=== PATIENT | female | born 1955 | race Caucasian/White ===

== ENCOUNTER 2019-02-18 13:43 | Emergency (ER) | payer OTHER ==
[2019-02-18] MEDS ORDERED: Ketorolac Tromethamine 30 MG/ML VIAL ONE (14:38)
[2019-02-18] MEDS ORDERED: Piperacillin/Tazobactam 4.5 GM VIAL ONE (14:44)
[2019-02-18 14:52] LABS: #Basophils 0.1 thou/uL (0.0-0.2); #Eosinphils 0.1 thou/uL (0.0-0.7); #Lymphocytes 1.6 thou/uL (1.20-3.40); #Monocytes 0.9 thou/uL (0.11-0.59); #Neutrophils 9.5 thou/uL (1.40-6.50); %Basophils 0.6 % (0.0-1.0); %Eosinophils 0.5 % (0.0-10.0); %Monocytes 7.4 % (0.0-10.0); %Neutrophils 78.5 % (42.0-75.0); Hemoglobin 14.2 g/dL (12.0-16.0); Mean Corpuscular HGB CONC 34.2 g/dL (32.0-36.0); Mean Corpuscular Hemoglobin 33.9 pg (27.0-31.0); Mean Corpuscular Volume 99.3 fL (78.0-98.0); Mean Platelet Volume 7.8 fL (7.4-10.4); Platelet Count 173 thou/uL (130-400); RBC Distribution Width 12.2 % (11.5-14.5); Red Blood Cell (RBC) Count 4.18 mill/uL (4.20-5.40); White Blood Cell (WBC) Count 12.1 thou/uL (4.8-10.8)
[2019-02-18 15:12] LABS: ALT (SGPT) 23 U/L (8-55); AST (SGOT) 21 U/L (5-34); Alkaline Phosphatase 129 U/L (40-150); Anion Gap 16 mmol/L (10-20); BUN (Urea Nitrogen) 14 mg/dL (9.8-20.1); Bilirubin, Total 1.3 mg/dL (0.2-1.2); Calc. Creatinine Clearance 0 mL/min (70-130); Calcium 9.6 mg/dL (7.8-10.44); Carbon Dioxide 21 mmol/L (23-31); Chloride 104 mmol/L (98-107); Estimated GFR-MDRD 81; Globulin 3.7 g/dL (2.4-3.5); Glucose 95 mg/dL (80-115); Potassium 3.6 mmol/L (3.5-5.1); Protein, Total 7.7 g/dL (6.0-8.3); Sodium 137 mmol/L (136-145)
[2019-02-18] MEDS ORDERED: Lidocaine 1% w/Epinephrine 1:100K 20 ML VIAL ONE (15:18)
--- NOTE | 2019-02-18 15:20 | RAD ---
FOUR VIEWS LEFT ELBOW: COMPARISON: None. HISTORY: Left arm pain. FINDINGS: Four views left elbow show no evidence of acute fracture or dislocation. No elbow effusion is seen. No degenerative changes are present. Moderate diffuse soft tissue swelling is seen. IMPRESSION: No evidence of acute osseous abnormality. POS: [facility]
[2019-02-18] MEDS ORDERED: Morphine 4 MG/ML VIAL ONE (15:35)
== END 2019-02-18 17:10 | disposition home or self-care (01) ==
LOC: ERS 13:43
DX: L02.414 Cutaneous abscess of left upper limb (principal); L03.114 Cellulitis of left upper limb; F17.210 Nicotine dependence, cigarettes, uncomplicated; F32.9 Major depressive disorder, single episode, unspecified
CPT/HCPCS: 10061; 36415; 80053; 83605; 85025; 87040; 87070; 87077; 87149; 87186; 87205; 96361; 96365; 96375; J1885; J2001; J2270; J2543

== ENCOUNTER 2019-02-20 11:57 | Inpatient (IN) | payer OTHER ==
[2019-02-20 13:14] LABS: #Eosinphils 0.1 thou/uL (0.0-0.7); #Lymphocytes 2.4 thou/uL (1.20-3.40); #Monocytes 0.6 thou/uL (0.11-0.59); #Neutrophils 5.9 thou/uL (1.40-6.50); %Basophils 0.4 % (0.0-1.0); %Eosinophils 1.3 % (0.0-10.0); %Lymphocytes 26.8 % (21.0-51.0); %Monocytes 6.9 % (0.0-10.0); %Neutrophils 64.7 % (42.0-75.0); Hemoglobin 13.6 g/dL (12.0-16.0); Mean Corpuscular HGB CONC 34.1 g/dL (32.0-36.0); Mean Corpuscular Hemoglobin 33.8 pg (27.0-31.0); Mean Platelet Volume 9.4 fL (7.4-10.4); Platelet Count 194 thou/uL (130-400); RBC Distribution Width 12.2 % (11.5-14.5); Red Blood Cell (RBC) Count 4.01 mill/uL (4.20-5.40); White Blood Cell (WBC) Count 9.1 thou/uL (4.8-10.8)
[2019-02-20] MEDS ORDERED: Piperacillin/Tazobactam 3.375 GM VIAL ONE (13:21)
[2019-02-20 13:24] LABS: ALT (SGPT) 31 U/L (8-55); AST (SGOT) 28 U/L (5-34); Albumin 3.5 g/dL (3.4-4.8); Alkaline Phosphatase 129 U/L (40-150); Anion Gap 14 mmol/L (10-20); BUN (Urea Nitrogen) 14 mg/dL (9.8-20.1); Bilirubin, Total 0.4 mg/dL (0.2-1.2); Calc. Creatinine Clearance 0 mL/min (70-130); Calcium 9.3 mg/dL (7.8-10.44); Carbon Dioxide 23 mmol/L (23-31); Chloride 106 mmol/L (98-107); Estimated GFR-MDRD 74; Globulin 3.7 g/dL (2.4-3.5); Glucose 101 mg/dL (80-115); Potassium 4.1 mmol/L (3.5-5.1); Protein, Total 7.2 g/dL (6.0-8.3); Sodium 139 mmol/L (136-145)
[2019-02-20] MEDS ORDERED: Lorazepam 2 MG/ML VIAL ONE (15:52)
[2019-02-20] MEDS ORDERED: Lorazepam 2 MG/ML VIAL SLOW IVP SCH (16:45)
[2019-02-20 17:25] VITALS: BMI 29.6
[2019-02-20] MEDS: Nicotine 21 MG PATCH TOP SCH (17:49)
[2019-02-20] MEDS: traMADol HCl 50 MG TAB PO PRN (19:14)
[2019-02-20] MEDS ORDERED: Vancomycin HCl 1.25 GM in Sodium Chloride 0.9% 250 ML 250 ML IVPB SCH (22:00)
[2019-02-20] MEDS: Acetaminophen 325 MG TAB PO PRN (23:08)
--- NOTE | 2019-02-21 00:16 | HP ---
CHIEF COMPLAINT: Left arm pain. HISTORY OF PRESENT ILLNESS: The patient is a 63-year-old female with no past medical history, except for the history of smoking, who presents to the hospital actually for a packing change. The patient initially came into the ER on the for swelling of her left elbow. The patient at that time underwent an x-ray, which did not indicate any acute osseous abnormalities. She stated that she had a small pimple, which she accidentally scratched and the following day, she had significant swelling and redness of her whole left arm. The patient underwent I and D in the ER. Cultures were sent and patient was sent on 2 antibiotics. The patient stated that she has been taking her antibiotics; however, came in today per instructions to change her packing. At this time, the ER physician felt the patient needed to be admitted to the hospital for further evaluation. However, the patient stated that her redness has dramatically improved than her previous admit on the . PAST MEDICAL HISTORY: Patient states that she does not take any medications. She has no past medical history. However, upon further questioning, she states that she has had cervical cancer in the past and has had a hysterectomy. However, in 2004, she had a Pap smear that indicated squamous cell, which she never followed up. The patient states that she has been doing fine and she does not need to follow up. PAST SURGICAL HISTORY: She has had some elbow surgery as a child. She does have hardware in her left elbow and she has had a hysterectomy. MEDICATIONS: The patient takes no medications. The only medications she took were prescribed, which were Bactrim and Keflex. ALLERGIES: SHE HAS NO KNOWN DRUG ALLERGIES. SOCIAL HISTORY: She is a smoker, 1-1/2 pack a day. Denies any drug use. Occasional alcohol use. REVIEW OF SYSTEMS: All negative except for the ones mentioned above in the HPI. FAMILY HISTORY: She states no history of heart disease or cancer. PHYSICAL EXAMINATION: VITAL SIGNS: Temperature of 98.3, 98% on room air, pulse 98, blood pressure 138/81. GENERAL: She is awake, alert, and oriented x3. Does not appear in any distress. HEENT: Normocephalic, atraumatic. No lymphadenopathy noted. CV: S1 and S2 present. No murmurs, rubs, or gallops. LUNGS: Clear to auscultation. No rhonchi or wheezes noted. ABDOMEN: Soft, nontender. Bowel sounds are present x2. EXTREMITIES: No edema. Pedal pulses are present x2. NEUROVASCULAR: No focal deficits noted. MUSCULOSKELETAL: She does have a significant purulent discharge that continues to ooze out of her left lateral elbow area. I do see a small incision. According to the patient, the redness has subsided significantly. According to the patient, it continues to heal. Elbow is warm to touch. However, she has good range of motion in that elbow. The concerning part is that she does have hardware in that area. PSYCHIATRIC: The patient is very tearful stating that she wants to smoke. LABORATORY RESULTS: WBCs of 9.1, hemoglobin of 13.6. Her WBC prior on the was 12.1, now it is 1.1. Hematocrit of 39.7, platelets of 194. Chemistry: Sodium of 139, potassium 4.1, BUN of 14, creatinine 0.79. Lactic acid is 1.3. ASSESSMENT AND PLAN: The patient is a very pleasant 63-year-old female who presents to the hospital initially for packing change. However, was admitted for further evaluation. 1. Cellulitis. It is of the left lateral forearm. The patient does have significant purulent discharge. I do have cultures that were taken with the incision and drainage, which indicated Staphylococcus aureus. According to the patient, her redness was improving. The antibiotic that she was on was Bactrim and it was sensitive. I will continue the vancomycin for now. She did have a blood culture that indicated Streptococcus viridans. Also one of the blood cultures indicated Streptococcus viridans. We will continue to monitor. Her vancomycin should cover that for now. 2. Smoking cessation. The patient will be ordered a nicotine patch. 3. The patient states that she had a positive squamous cell test in 2004. I recommended her to follow up with health care as an outpatient. I will provide her some names of clinics to provide free care. 4. Deep venous thrombosis prophylaxis. We will put the patient on a sequential compression device or Lovenox. Job ID: [id number]
[2019-02-21 05:04] LABS: #Basophils 0.1 thou/uL (0.0-0.2); #Eosinphils 0.1 thou/uL (0.0-0.7); #Lymphocytes 2.2 thou/uL (1.20-3.40); #Monocytes 0.5 thou/uL (0.11-0.59); #Neutrophils 3.4 thou/uL (1.40-6.50); %Basophils 1.1 % (0.0-1.0); %Eosinophils 1.9 % (0.0-10.0); %Lymphocytes 34.9 % (21.0-51.0); %Monocytes 8.1 % (0.0-10.0); Hemoglobin 11.7 g/dL (12.0-16.0); Mean Corpuscular HGB CONC 33.1 g/dL (32.0-36.0); Mean Corpuscular Hemoglobin 32.4 pg (27.0-31.0); Mean Corpuscular Volume 97.8 fL (78.0-98.0); Platelet Count 206 thou/uL (130-400); RBC Distribution Width 12.1 % (11.5-14.5); Red Blood Cell (RBC) Count 3.62 mill/uL (4.20-5.40); White Blood Cell (WBC) Count 6.3 thou/uL (4.8-10.8)
[2019-02-21 05:31] LABS: Anion Gap 13 mmol/L (10-20); BUN (Urea Nitrogen) 18 mg/dL (9.8-20.1); Calc. Creatinine Clearance 116 mL/min (70-130); Calcium 8.6 mg/dL (7.8-10.44); Carbon Dioxide 21 mmol/L (23-31); Chloride 108 mmol/L (98-107); Estimated GFR-MDRD 84; Glucose 90 mg/dL (80-115); Potassium 3.8 mmol/L (3.5-5.1); Sodium 138 mmol/L (136-145)
[2019-02-21] MEDS: traMADol HCl 50 MG TAB PO PRN ×3 (05:44→22:33)
[2019-02-21] MEDS: Enoxaparin Sodium 30 MG/0.3 ML SYRINGE SC SCH (08:08)
[2019-02-21] MEDS: Acetaminophen 325 MG TAB PO PRN (08:10)
[2019-02-21] MEDS ORDERED: Ibuprofen 200 MG TAB PO SCH (09:00)
[2019-02-21] MEDS ORDERED: cefOXitin Sodium/Dextrose,Iso 1 GM in Premix Bag 1 BAG IVPB SCH (11:00)
[2019-02-21] MEDS ORDERED: CEFAZOLIN 1 GM in Sodium Chloride 0.9% 100 ML IVPB SCH (11:00)
[2019-02-21 11:20] LABS: Bilirubin Small (Negative); Blood, Urine Negative (Negative); Clarity CLEAR (Clear); Glucose, Urine (Dipstick) Negative (Negative); Leukocyte Negative (Negative); Nitrite Negative (Negative); Protein, Urine (Dipstick) Negative (Neg-Trace); Specific Gravity, Urine 1.024 (1.002-1.036)
[2019-02-21 11:26] LABS: Bacteria/HPF None Seen HPF (None Seen); Hyaline Casts/LPF 0-3 HYALINE CAST LPF (0-3 Hyaline); Pathc Cast-AUWi Flag 0.54 (0-2.49); WBC/HPF 0-3 HPF (0-3)
[2019-02-21 11:32] LABS: Urine Culture Reflex No No
[2019-02-21] MEDS ORDERED: Morphine 4 MG/ML VIAL SLOW IVP SCH (11:45)
--- NOTE | 2019-02-21 14:14 | RAD ---
RIGHT HIP 2 VIEWS: HISTORY: Right hip pain following an injury from a fall. FINDINGS: Very mild degenerative change. No acute fracture or dislocation or other significant osseous abnorma lity. IMPRESSION: Degenerative change without other acute process. POS: [facility]
--- NOTE | 2019-02-21 16:09 | PDOC.PN ---
- Subjective Encounter Start Date: 02/21/19 Encounter Start Time: 10:15 Subjective: pt up in bed complains of pain to her left arm - Objective Resuscitation Status - Order Detail: 02/20/19 16:08 Resuscitation Status Routine Resuscitation Status: FULL: Full Resuscitation Vital Signs & Weight: Vital Signs (12 hours) Temp Pulse Resp BP Pulse Ox 02/21/19 12:30 97.4 F L 82 18 137/78 96 02/21/19 08:00 97 02/21/19 07:49 97.5 F L 80 20 137/73 97 02/21/19 04:47 98.4 F 82 18 118/67 92 L Weight Weight 195 lb 1.6 oz Result Diagrams: 02/21/19 03:55 02/21/19 03:55 Phys Exam - Physical Examination Neck: no nodes, no JVD, supple, full ROM Respiratory: no wheezing, no rales, no rhonchi, wheezing present, clear to auscultation bilateral Cardiovascular: RRR, no significant murmur, no rub, gallop, irregular Gastrointestinal: soft, non-tender, no distention, positive bowel sounds pain to her left arm, mild erythema noted Neurological: non-focal, normal sensation, moves all 4 limbs Dx/Plan (1) Cellulitis Code(s): L03.90 - CELLULITIS, UNSPECIFIED Status: Acute (2) Smoking Code(s): F17.200 - NICOTINE DEPENDENCE, UNSPECIFIED, UNCOMPLICATED Status: Acute - Plan will change abx to ancef. -: ID consulted due to strep viridans and mssa -: pt on nicotine patch -: wound care consulted * . Review of Systems - Review of Systems Respiratory: negative: Cough, Dry, Shortness of Breath, Hemoptysis, SOB with Excertion, Pleuritic Pain, Sputum, Wheezing Cardiovascular: negative: chest pain, palpitations, orthopnea, paroxysmal nocturnal dyspnea, edema, light headedness, other Gastrointestinal: negative: Nausea, Vomiting, Abdominal Pain, Diarrhea, Constipation, Melena, Hematochezia, Other Genitourinary: negative: Dysuria, Frequency, Incontinence, Hematuria, Retention , Other Musculoskeletal: Arm Pain - Medications/Allergies Allergies/Adverse Reactions: Allergies Allergy/AdvReac Type Severity Reaction Status Date / Time No Known Allergies Allergy Verified 02/20/19 17:38 Medications: Current Medications Acetaminophen (Tylenol) 650 mg PO Q4H PRN PRN Reason: Headache/Fever/Mild Pain (1-3) Last Admin: 02/21/19 08:10 Dose: 650 mg Enoxaparin Sodium (Lovenox) 30 mg SC 0900 JAMAL Last Admin: 02/21/19 08:08 Dose: 30 mg Cefazolin Sodium/Dextrose (Ancef) 50 mls @ 100 mls/hr IVPB 0300,1100,1900 JAMAL Ibuprofen (Motrin) 600 mg PO Q8H PRN PRN Reason: Mild-Moderate Pain (1-5) Miscellaneous Medication (Pharmacy To Dose) 1 each IVPB .VANCOMYCIN [facility] Nicotine (Nicoderm Patch) 21 mg TOP 1700 JAMAL Last Admin: 02/20/19 17:49 Dose: 21 mg Tramadol HCl (Ultram) 50 mg PO Q6H PRN PRN Reason: Moderate Pain (4-6) Last Admin: 02/21/19 11:45 Dose: 50 mg
[2019-02-21] MEDS: Nicotine 21 MG PATCH TOP SCH (17:17)
[2019-02-21] MEDS: Ibuprofen 600 MG TAB PO PRN (17:22)
[2019-02-22] MEDS: Ibuprofen 600 MG TAB PO PRN (01:07)
--- NOTE | 2019-02-22 01:35 | CON ---
DATE OF CONSULTATION: 02/21/2019 REASON FOR CONSULTATION: Left arm pain with wound. 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 X-ray did not show any bony abnormalities and cultures were taken and she was admitted. No headaches. No visual symptoms, sore throat, odynophagia, or dysphagia. No cough or sputum production. No chest pain. Still smoking. No abdominal pain. No diarrhea. No other joint symptoms. No neurological symptoms. PAST MEDICAL HISTORY: Cervical cancer, hysterectomy, and apparently she had a squamous cell cancer on Pap smear followup which she did not follow up with that. She had also ORIF of the left elbow when she was a child and had a hysterectomy. ALLERGIES: NONE. SOCIAL HISTORY: She used to work as a nurse in the telemetry area. She is currently smoking. FAMILY HISTORY: Noncontributory. CURRENT MEDICATIONS: 1. Cefazolin. 2. Lovenox. 3. Motrin. 4. Nicoderm. 5. Ultram. PHYSICAL EXAMINATION: VITAL SIGNS: T-max 98.4, blood pressure 140/82, pulse 85, respirations 18, O2 saturation 94% to 96%. SKIN: Shows the wound in the volar aspect of the left forearm close to the antecubital fossa, there is erythema surrounding this area, and this wraps around towards the elbow. There is quite a bit of tenderness and fluctuance around the elbow lateral aspect. The patient has peripheral IV access. No Swartz catheter. She is voiding in the toilet. HEENT: No lymphadenopathy. Ocular movements conjugate. Sclerae white. Pupils are equal. Oral cavity, numerous teeth in place with quite a bit of decay and gum disease. NECK: Supple. No jugular venous distention or carotid bruits. LUNGS: Symmetric. Clear breath sounds. HEART: S1 and S2, regular rate. No S3 or S4. ABDOMEN: Soft, not distended or tender. No ascites. No bladder distention. EXTREMITIES: Pulses 1+ in dorsalis pedis. Moves extremities equally except for limitations imposed by inflammatory process of left upper extremity. NEUROLOGIC: Cognitive function appears to be intact. LABORATORY DATA: White cell count is 6.3, hemoglobin 11.7, platelets 206 with normal differential. Chemistry was not remarkable. Globulin 3.7. Microbiology with Staphylococcus aureus from the arm wound and very dense strep from one set of blood cultures. The other, no growth at 48 hours. The patient had a hip x-ray because of pain in the right hip with degenerative change, but no acute process , and she had an elbow x-ray with no acute osseous abnormality. ASSESSMENT: Inflammatory process of the left elbow with a history of prior open reduction and internal fixation many years ago. Bacteremia (Streptococcal), MSSA from abscess. DISCUSSION: In the face of the prior surgery and the affected inflammatory process extends to the posterior aspect of the elbow towards the humerus makes me worry about possibility of a fistulous opening associated with foci of osteomyelitis in the humerus. We will order an MRI with contrast to evaluate the possibility. The other consideration would be an abscess or olecranon bursitis that is exiting through the antecubital foci. Will have to wait for final identification of the Streptococcus from blood sample to evaluate if it represents a true infection or just contamination of sample. Job ID: [id number] [facility]
[2019-02-22] MEDS: Morphine 2 MG/ML SYRINGE SLOW IVP PRN ×2 (02:04→08:27)
[2019-02-22] MEDS: Enoxaparin Sodium 30 MG/0.3 ML SYRINGE SC SCH (08:19)
[2019-02-22] MEDS ORDERED: Lorazepam 2 MG/ML VIAL SLOW IVP SCH (10:15)
[2019-02-22] MEDS: ALPRAZolam 0.25 MG TAB PO PRN ×2 (10:19→20:03)
[2019-02-22] MEDS: traMADol HCl 50 MG TAB PO PRN ×2 (10:21→20:03)
[2019-02-22] MEDS ORDERED: ISOVUE-370 76%-LOCM 1 ML ONE (16:55)
--- NOTE | 2019-02-22 17:16 | PRG ---
DATE OF SERVICE: 02/22/2019 SUBJECTIVE: Ms. Bell could not tolerate the MRI and could not complete the study. The elbow feels better with less pain. No respiratory symptoms right now. No abdominal pain or diarrhea. OBJECTIVE: VITAL SIGNS: T-max 98.4. Other vital signs with slight elevation of systolic blood pressure. GENERAL: Awake, is calmer now. Feels little better. HEENT: Ocular movements conjugate. LUNGS: Symmetric, clear breath sounds. HEART: S1, S2, regular rate. EXTREMITIES: Left elbow with less swelling, less tenderness still with erythema and the open wound. LABORATORY DATA: White cell count 6.3, hemoglobin 11.7. Sodium 138, creatinine 0.71. Microbiology with viridans strep, most likely a contaminant and Staph aureus from the arm, which is methicillin sensitive Staph. Currently on cefazolin. ASSESSMENT AND DISCUSSION: Inflammatory process, left elbow with a history of prior open reduction and fixation of the area many years ago. The bacteremia is likely a contaminant. We will order a bone scan to rule out osteomyelitis. If it is negative, then we will treat as an abscess and she may need further debridement. An alternate approach would be a CT of the left elbow. I guess we will start with CT first and may have to do a bone scan. Job ID: [id number]
[2019-02-22] MEDS: Nicotine 21 MG PATCH TOP SCH (18:05)
--- NOTE | 2019-02-22 18:46 | PDOC.PN ---
- Subjective Encounter Start Date: 02/22/19 Encounter Start Time: 10:00 Subjective: pt up in bed appears anxious - Objective Resuscitation Status - Order Detail: 02/20/19 16:08 Resuscitation Status Routine Resuscitation Status: FULL: Full Resuscitation Vital Signs & Weight: Vital Signs (12 hours) Temp Pulse Resp BP Pulse Ox 02/22/19 12:00 97.8 F 80 20 155/88 H 95 02/22/19 08:16 97.7 F 73 20 147/88 H 93 L 02/22/19 08:00 93 L Weight Admit Weight 195 lb 1.6 oz Weight 195 lb 1.6 oz I&O: 02/21/19 02/22/19 02/23/19 06:59 06:59 06:59 Intake Total 1120 960 Balance 1120 960 Result Diagrams: 02/21/19 03:55 02/21/19 03:55 Phys Exam - Physical Examination Neck: no nodes, no JVD, supple, full ROM Respiratory: no wheezing, no rales, no rhonchi, wheezing present, clear to auscultation bilateral Cardiovascular: RRR, no significant murmur, no rub, gallop, irregular Gastrointestinal: soft, non-tender, no distention, positive bowel sounds left arm erythema, with purulent drainage Dx/Plan (1) Cellulitis Code(s): L03.90 - CELLULITIS, UNSPECIFIED Status: Acute (2) Smoking Code(s): F17.200 - NICOTINE DEPENDENCE, UNSPECIFIED, UNCOMPLICATED Status: Acute - Plan pt to go for CT this am became anxious -: will rx one time ativan prior to ct -: will continue abx, appreciate ID's assistance * . Review of Systems - Review of Systems Respiratory: negative: Cough, Dry, Shortness of Breath, Hemoptysis, SOB with Excertion, Pleuritic Pain, Sputum, Wheezing Cardiovascular: negative: chest pain, palpitations, orthopnea, paroxysmal nocturnal dyspnea, edema, light headedness, other Musculoskeletal: Arm Pain - Medications/Allergies Allergies/Adverse Reactions: Allergies Allergy/AdvReac Type Severity Reaction Status Date / Time No Known Allergies Allergy Verified 02/20/19 17:38 Medications: Current Medications Acetaminophen (Tylenol) 650 mg PO Q4H PRN PRN Reason: Headache/Fever/Mild Pain (1-3) Last Admin: 02/21/19 08:10 Dose: 650 mg Alprazolam (Xanax) 0.25 mg PO BIDPRN PRN PRN Reason: Anxiety Last Admin: 02/22/19 10:19 Dose: 0.25 mg Enoxaparin Sodium (Lovenox) 30 mg SC 0900 JAMAL Last Admin: 02/22/19 08:19 Dose: 30 mg Cefazolin Sodium/Dextrose (Ancef) 50 mls @ 100 mls/hr IVPB Q8H JAMAL Last Admin: 02/22/19 18:05 Dose: 50 mls Ibuprofen (Motrin) 600 mg PO Q8H PRN PRN Reason: Mild-Moderate Pain (1-5) Last Admin: 02/22/19 01:07 Dose: 600 mg Lorazepam (Ativan) 1 mg SLOW IVP WILLCALL JAMAL Nicotine (Nicoderm Patch) 21 mg TOP 1700 JAMAL Last Admin: 02/22/19 18:05 Dose: 21 mg Sodium Chloride (Flush - Normal Saline) 10 ml IVF PRN PRN PRN Reason: Saline Flush Tramadol HCl (Ultram) 50 mg PO Q6H PRN PRN Reason: Moderate Pain (4-6) Last Admin: 02/22/19 10:21 Dose: 50 mg
--- NOTE | 2019-02-22 19:16 | CT ---
CT LEFT UPPER EXTREMITY WITH IV CONTRAST (ELBOW) 02/22/19 HISTORY: Left elbow pain, swelling, erythema. FINDINGS: The bones are intact. No bony destruction or cortical erosion is seen to suggest osteomyelitis. There is edema and inflammatory change in the subcutaneous fat of the elbow with small amount of fluid pre dominantly in the subcutaneous fat of the radial aspect of the elbow. A definite loculation is not se en to suggest abscess formation. No air is seen within the fluid. IMPRESSION: Findings are suggestive of cellulitis. A developing soft tissue abscess cannot be completely excluded . No evidence of osteomyelitis. POS: [facility]
--- NOTE | 2019-02-22 22:29 | EKG ---
Test Reason : Blood Pressure : / mmHG Vent. Rate : 082 BPM Atrial Rate : 082 BPM P-R Int : 146 ms QRS Dur : 078 ms QT Int : 368 ms P-R-T Axes : 069 019 063 degrees QTc Int : 429 ms Normal sinus rhythm Normal ECG No previous ECGs available Confirmed by Fred FREDERICK ([id number]) on 02/22/2019 10:28:42 PM Referred By: PATRIZIA Confirmed By:Fred FREDERICK
[2019-02-23 07:53] VITALS: BP 128/89; TEMP 97.4
[2019-02-23] MEDS: Enoxaparin Sodium 30 MG/0.3 ML SYRINGE SC SCH (08:13)
[2019-02-23] MEDS: ALPRAZolam 0.25 MG TAB PO PRN (08:13)
[2019-02-23] MEDS: traMADol HCl 50 MG TAB PO PRN (09:26)
[2019-02-23] MEDS: Ibuprofen 600 MG TAB PO PRN (09:26)
--- NOTE | 2019-02-23 14:18 | PDOC.PN ---
- Subjective Encounter Start Date: 02/23/19 Encounter Start Time: 10:30 Subjective: pt up walking around, going down to smoke. - Objective Resuscitation Status - Order Detail: 02/20/19 16:08 Resuscitation Status Routine Resuscitation Status: FULL: Full Resuscitation Vital Signs & Weight: Vital Signs (12 hours) Temp Pulse Resp BP Pulse Ox 02/23/19 08:00 96 02/23/19 07:49 97.4 F L 72 20 128/89 96 Weight Admit Weight 195 lb 1.6 oz Weight 195 lb 1.6 oz I&O: 02/22/19 02/23/19 02/24/19 06:59 06:59 06:59 Intake Total 1120 960 Balance 1120 960 Result Diagrams: 02/21/19 03:55 02/21/19 03:55 Phys Exam - Physical Examination Respiratory: no wheezing, no rales, no rhonchi, wheezing present, clear to auscultation bilateral Cardiovascular: RRR, no significant murmur, no rub, gallop, irregular Gastrointestinal: soft, non-tender, no distention, positive bowel sounds Musculoskeletal: no edema, pulses present, edema present Dx/Plan (1) Cellulitis Code(s): L03.90 - CELLULITIS, UNSPECIFIED Status: Acute (2) Smoking Code(s): F17.200 - NICOTINE DEPENDENCE, UNSPECIFIED, UNCOMPLICATED Status: Acute - Plan will remove patch since she is smoking -: will continue abx for now. ct indicated cellulitis * . Review of Systems - Review of Systems Respiratory: negative: Cough, Dry, Shortness of Breath, Hemoptysis, SOB with Excertion, Pleuritic Pain, Sputum, Wheezing Cardiovascular: negative: chest pain, palpitations, orthopnea, paroxysmal nocturnal dyspnea, edema, light headedness, other Gastrointestinal: negative: Nausea, Vomiting, Abdominal Pain, Diarrhea, Constipation, Melena, Hematochezia, Other - Medications/Allergies Allergies/Adverse Reactions: Allergies Allergy/AdvReac Type Severity Reaction Status Date / Time No Known Allergies Allergy Verified 02/20/19 17:38 Medications: Current Medications Acetaminophen (Tylenol) 650 mg PO Q4H PRN PRN Reason: Headache/Fever/Mild Pain (1-3) Last Admin: 02/21/19 08:10 Dose: 650 mg Alprazolam (Xanax) 0.25 mg PO BIDPRN PRN PRN Reason: Anxiety Last Admin: 02/23/19 08:13 Dose: 0.25 mg Enoxaparin Sodium (Lovenox) 30 mg SC 0900 JAMAL Last Admin: 02/23/19 08:13 Dose: 30 mg Cefazolin Sodium/Dextrose (Ancef) 50 mls @ 100 mls/hr IVPB Q8H JAMAL Last Admin: 02/23/19 09:41 Dose: 50 mls Ibuprofen (Motrin) 600 mg PO Q8H PRN PRN Reason: Mild-Moderate Pain (1-5) Last Admin: 02/23/19 09:26 Dose: 600 mg Lorazepam (Ativan) 1 mg SLOW IVP WILLCALL [facility] Nicotine (Nicoderm Patch) 21 mg TOP 1700 JAMAL Last Admin: 02/22/19 18:05 Dose: 21 mg Sodium Chloride (Flush - Normal Saline) 10 ml IVF PRN PRN PRN Reason: Saline Flush Tramadol HCl (Ultram) 50 mg PO Q6H PRN PRN Reason: Moderate Pain (4-6) Last Admin: 02/23/19 09:26 Dose: 50 mg
[2019-02-23] MEDS: Nicotine 21 MG PATCH TOP SCH (18:03)
== END 2019-02-23 18:50 | disposition home or self-care (01) | DRG 603 ==
LOC: ERS 11:57 → ONC 14:16 → T4-A 02-21 22:40
PROVIDERS: ADMIT Internal Medicine; ATTEND Internal Medicine
PROC: 0H9CXZZ Drainage of Left Upper Arm Skin, External Approach (ICD-10-PCS; principal; 2019-02-20)
DX: L03.114 Cellulitis of left upper limb (principal); B95.61 Methicillin susceptible Staphylococcus aureus infection as the cause of diseases classified elsewhere; F17.210 Nicotine dependence, cigarettes, uncomplicated; Z85.41 Personal history of malignant neoplasm of cervix uteri; Z90.710 Acquired absence of both cervix and uterus; Z71.6 Tobacco abuse counseling
CPT/HCPCS: 36415; 80048; 80053; 81001; 83605; 85025; 93005; 93010; J0690; J0694; J1650; J2060; J2270; J2543; J3370; J7050

== ENCOUNTER 2019-04-20 18:41 | Inpatient (IN) | payer OTHER ==
[2019-04-20] MEDS ORDERED: Ketorolac Tromethamine 30 MG/ML VIAL ONE (19:16)
[2019-04-20] MEDS ORDERED: Fentanyl 100 MCG/2 ML VIAL ONE ×2 (19:16→19:38)
[2019-04-20 19:24] LABS: #Basophils 0.1 thou/uL (0.0-0.2); #Eosinphils 0.1 thou/uL (0.0-0.7); #Lymphocytes 2.2 thou/uL (1.20-3.40); #Monocytes 0.5 thou/uL (0.11-0.59); #Neutrophils 7.3 thou/uL (1.40-6.50); %Basophils 0.6 % (0.0-1.0); %Eosinophils 0.6 % (0.0-10.0); %Lymphocytes 21.9 % (21.0-51.0); %Monocytes 4.5 % (0.0-10.0); %Neutrophils 72.3 % (42.0-75.0); Hemoglobin 14.1 g/dL (12.0-16.0); Mean Corpuscular Hemoglobin 32.8 pg (27.0-31.0); Mean Corpuscular Volume 96.4 fL (78.0-98.0); Mean Platelet Volume 7.8 fL (7.4-10.4); Platelet Count 180 thou/uL (130-400); Red Blood Cell (RBC) Count 4.31 mill/uL (4.20-5.40); White Blood Cell (WBC) Count 10.1 thou/uL (4.8-10.8)
[2019-04-20 19:29] LABS: PTT 24.8 SEC (22.9-36.1); Prothrombin Time 12.8 SEC (12.0-14.7)
[2019-04-20 19:44] LABS: ALT (SGPT) 21 U/L (8-55); AST (SGOT) 26 U/L (5-34); Albumin 3.7 g/dL (3.4-4.8); Alkaline Phosphatase 89 U/L (40-150); Anion Gap 13 mmol/L (10-20); BUN (Urea Nitrogen) 12 mg/dL (9.8-20.1); Bilirubin, Total 0.3 mg/dL (0.2-1.2); Calc. Creatinine Clearance 0 mL/min (70-130); Calcium 8.3 mg/dL (7.8-10.44); Carbon Dioxide 21 mmol/L (23-31); Chloride 113 mmol/L (98-107); Estimated GFR-MDRD 86; Globulin 2.8 g/dL (2.4-3.5); Glucose 103 mg/dL (80-115); Potassium 3.1 mmol/L (3.5-5.1); Protein, Total 6.5 g/dL (6.0-8.3); Sodium 144 mmol/L (136-145)
--- NOTE | 2019-04-20 19:50 | RAD ---
PORTABLE AP CHEST X-RAY: 04/20/19 HISTORY: Fall with right sided rib pain and shortness of breath. COMPARISON: None available. FINDINGS: Cardiac silhouette and bronchovascular markings are accentuated by shallow depth of inspiration and p ortable technique. There is atelectasis present at each lung base. No obvious pneumothorax is seen, and there is no pleural effusion. There is subcutaneous emphysema along the right lateral chest in th e infraclavicular and supraclavicular location. No obvious rib fracture is appreciated on this exam. No other findings. IMPRESSION: 1. Subcutaneous emphysema along the right chest in a supraclavicular location. No obvious pneu mothorax is delineated on this examination, but given subcutaneous emphysema, CT thorax would be help ful for further evaluation. 2. Bibasilar atelectasis. No pleural effusion is seen. 3. Above findings discussed with Dr. Knox in the Emergency Department 04/20/19 at 1932 hours. POS: [facility]
--- NOTE | 2019-04-20 20:23 | CT ---
EXAM: CT of the chest with IV contrast CT of the abdomen and pelvis with IV contrast Limited CT of the thoracic and lumbar spine with IV contrast HISTORY: Injury after a fall from 8 feet. Patient has shortness of breath and right-sided pain and ri b pain. COMPARISON: None FINDINGS: CT CHEST: Mediastinum: Heart is borderline in size without focal cardiac abnormality. No hilar or mediastinal l ymphadenopathy. No mediastinal hemorrhage. Vessels: Minimal vascular calcifications are seen at the aortic arch. There are no findings to sugges t an aortic injury. Lungs: Dependent increased density is seen at each lung base likely related to dependent atelectasis. Mild emphysematous changes are present. Pleural space: There is a small right-sided pneumothorax which occupies less than 15% of the volume o f the right hemithorax. No pleural effusion is identified. Osseous structures: There are nondisplaced fractures involving the right anterolateral and lateral si xth through ninth ribs. Chest wall: There is right-sided subcutaneous emphysema. CT ABDOMEN/PELVIS: Liver: Within normal limits. Gallbladder: Within normal limits for CT appearance. Spleen: Within normal limits. Pancreas: Within normal limits. Adrenal glands: Within normal limits. Kidneys: A 1.3 cm hypodense structure seen inferior pole right kidney likely due to a small cyst. Kid neys otherwise have a normal appearance aside from minimal scarring midportion left kidney. Urinary bladder: Incompletely distended but otherwise grossly within normal limits. Vessels: Vascular calcifications without evidence of an aortic injury. Pelvis: No focal mass or abnormality. Reproductive organs: There is evidence of hysterectomy. Peritoneum: No free air or free fluid. Retroperitoneum: No lymphadenopathy. Osseous structures: No acute fracture identified. LIMITED CT OF THE THORACIC AND LUMBAR SPINE: Bilateral pars defects are seen at L5 without anterolisthesis. No acute fracture or subluxation is se en. No paravertebral soft tissue swelling is present. Mild degenerative changes are present in the spine. IMPRESSION: 1. Right-sided rib fractures with small right pneumothorax and subcutaneous emphysema. 2. No acute findings are seen in the abdomen or pelvis. 3. No evidence of acute osseous abnormality of the thoracic or lumbar spine. 4. Spondylolysis at L5. 5. Above findings were discussed with Dr. Lizama in the emergency department on 04/20/2019 at 2019 hours.
[2019-04-20] MEDS ORDERED: Morphine 4 MG/ML VIAL ONE (20:44)
[2019-04-20] MEDS ORDERED: Morphine 2 MG/ML SYRINGE ONE (20:45)
[2019-04-20 20:57] LABS: Acetaminophen Less than 6.0 mcg/mL (10.0-30.0); Alcohol 19 mg/dL (Less than 10); Salicylate Less than 8.0 mg/dL (15.0-30.0)
[2019-04-20] MEDS ORDERED: Cyclobenzaprine 10 MG TAB ONE (20:59)
[2019-04-20 21:10] LABS: Phosphorus 3.3 mg/dL (2.3-4.7)
[2019-04-20] MEDS ORDERED: Dextrose 50% Abboject 50 ML SYRINGE SLOW IVP PRN ×2 (21:10→21:17)
[2019-04-20] MEDS ORDERED: Morphine 4 MG/ML VIAL SLOW IVP PRN (21:10)
[2019-04-20] MEDS ORDERED: Dextrose 5% in Water 1,000 ML IV PRN ×2 (21:10→21:17)
[2019-04-20] MEDS ORDERED: Ondansetron PF 4 MG/2 ML Vial IVP PRN (21:10)
[2019-04-20] MEDS ORDERED: Promethazine HCl 25 MG/ML VIAL IM PRN (21:10)
[2019-04-20] MEDS ORDERED: hydrALAZINE 20 MG/ML VIAL SLOW IVP PRN (21:10)
[2019-04-20] MEDS ORDERED: Sodium Chloride 0.9% 1,000 ML IV SCH (21:45)
[2019-04-20] MEDS: Magnesium 2 GM/50 ML 2 GM in Premix Bag 1 BAG IVPB SCH ×2 (22:00→23:15)
[2019-04-20] MEDS ORDERED: Potassium Chloride 40 MEQ in Sodium Chloride 0.9% 250 ML 250 ML IVPB SCH (22:00)
[2019-04-20] MEDS: Gabapentin 300 MG CAP PO SCH (23:15)
[2019-04-20] MEDS: Lidocaine 5% Patch TD SCH (23:17)
[2019-04-20 23:25] VITALS: BMI 29.9
[2019-04-20] MEDS ORDERED: Ondansetron ODT 4 MG TAB SL PRN (23:32)
[2019-04-20] MEDS: Ketorolac Tromethamine 30 MG/ML VIAL IVP SCH (23:52)
[2019-04-20] MEDS: Oxazepam 10 MG CAP PO SCH (23:55)
[2019-04-20] MEDS: traMADol HCl 50 MG TAB PO SCH (23:57)
[2019-04-21] MEDS: Acetaminophen 1,000 MG in Premix Bag 1 BAG IVPB SCH ×2 (00:21→05:27)
[2019-04-21] MEDS: Oxazepam 10 MG CAP PO SCH ×3 (05:27→21:28)
[2019-04-21] MEDS: traMADol HCl 50 MG TAB PO SCH ×3 (05:27→18:14)
[2019-04-21] MEDS: Ketorolac Tromethamine 30 MG/ML VIAL IVP SCH ×3 (05:30→18:14)
[2019-04-21 05:55] LABS: #Basophils 0.1 thou/uL (0.0-0.2); #Eosinphils 0.1 thou/uL (0.0-0.7); #Lymphocytes 2.4 thou/uL (1.20-3.40); #Monocytes 0.6 thou/uL (0.11-0.59); #Neutrophils 4.5 thou/uL (1.40-6.50); %Eosinophils 1.7 % (0.0-10.0); %Lymphocytes 30.5 % (21.0-51.0); %Monocytes 7.8 % (0.0-10.0); %Neutrophils 59.1 % (42.0-75.0); Hemoglobin 12.6 g/dL (12.0-16.0); Mean Corpuscular HGB CONC 33.4 g/dL (32.0-36.0); Mean Corpuscular Hemoglobin 32.4 pg (27.0-31.0); Mean Corpuscular Volume 96.9 fL (78.0-98.0); Mean Platelet Volume 8.1 fL (7.4-10.4); Platelet Count 165 thou/uL (130-400); RBC Distribution Width 12.9 % (11.5-14.5); Red Blood Cell (RBC) Count 3.88 mill/uL (4.20-5.40); White Blood Cell (WBC) Count 7.7 thou/uL (4.8-10.8)
[2019-04-21 06:16] LABS: Anion Gap 11 mmol/L (10-20); BUN (Urea Nitrogen) 14 mg/dL (9.8-20.1); Calc. Creatinine Clearance 119 mL/min (70-130); Calcium 9.1 mg/dL (7.8-10.44); Carbon Dioxide 23 mmol/L (23-31); Chloride 107 mmol/L (98-107); Estimated GFR-MDRD 85; Glucose 94 mg/dL (80-115); Magnesium 2.6 mg/dL (1.6-2.6); Phosphorus 3.3 mg/dL (2.3-4.7); Potassium 4.5 mmol/L (3.5-5.1); Sodium 136 mmol/L (136-145)
[2019-04-21] MEDS: Gabapentin 300 MG CAP PO SCH ×4 (08:33→21:27)
[2019-04-21] MEDS: Polyethylene Glycol 3350 17 GM Packet PO SCH (08:33)
[2019-04-21] MEDS: Multivitamin W/ Minerals 1 TAB PO SCH (08:34)
[2019-04-21] MEDS: Senokot S 8.6-50 MG TAB PO SCH ×2 (08:34→21:27)
[2019-04-21] MEDS: Folic Acid 1 MG TAB PO SCH (08:34)
--- NOTE | 2019-04-21 08:57 | RAD ---
CHEST 1 VIEW: HISTORY: Followup right-sided pneumothorax. FINDINGS: Again noted is a very small right-sided pneumothorax, stable. Minimal subcutaneous emphysema on the right which is also stable. Stable-appearing left chest with increased markings bilaterally. IMPRESSION: 1. Stable chest. Tiny residual right-sided pneumothorax and stable right-sided subcutaneous emphyse ma. 2. Stable linear and interstitial increased markings bilaterally. Continued short-term followup for complete clearing. POS: [facility]
[2019-04-21] MEDS ORDERED: Thiamine 100 MG TAB PO SCH (09:00)
[2019-04-21] MEDS ORDERED: Famotidine 20 MG TAB PO SCH (09:00)
[2019-04-21] MEDS: Lidocaine Patch Removal 1 EACH TOP SCH (10:12)
--- NOTE | 2019-04-21 11:34 | HP ---
TRAUMA SURGEON: Dr. Montgomery. CONSULTING PHYSICIAN: None. HISTORY OF PRESENT ILLNESS: The patient is a 63-year-old female who presented to the emergency department after a mechanical fall from a ladder about 6 feet high, where she landed on her right side, hitting a metal swimming pool on her way down. The patient denies loss of consciousness and was able to ambulate postoperatively. She complained of difficulty breathing and pain upon arrival to the emergency department. She did report that she is a daily drinker and smokes about 2-3 packs per day. Chest x-ray demonstrated some right-sided subcu emphysema. Subsequently, a CT of the chest, abdomen, and pelvis was completed which showed a small right pneumothorax with right-sided rib fractures, 6 through 9. Upon my evaluation, the patient complained of right-sided chest wall pain and appeared uncomfortable in the bed. She was maintaining oxygen saturation of 92% to 93% percent on 3 L oxygen via nasal cannula. REVIEW OF SYSTEMS: All additional 10-point review of systems negative except as indicated above. PAST MEDICAL HISTORY: Cervical cancer. PAST SURGICAL HISTORY: Hysterectomy and left elbow surgery. SOCIAL HISTORY: The patient smokes 2-3 packs per day, maybe even more. She drinks whiskey every day as well. She denies any history of drug use. MEDICATIONS: She is not currently taking medications, but she was recently prescribed Keflex from what appeared to be an infected spider bite. The patient has completed those antibiotics. ALLERGIES: NO KNOWN DRUG ALLERGIES. PHYSICAL EXAMINATION: VITAL SIGNS: Temperature 97.5, pulse 91, respirations 24, oxygen saturation 90% on room air, blood pressure 171/112. PRIMARY SURVEY: Airway intact. Adequate breath sounds bilaterally. 2+ pulses in the bilateral radials, femorals, and DPs. GCS is 15. Gross motor and sensation are intact. No lacerations, bruising, or external bleeding. Previous old wound from spider bite to left elbow. SECONDARY SURVEY: HEAD: Normocephalic and atraumatic. No gross palpable skull deformities or tenderness. EYES: Pupils 3 to 2 equal, round, reactive to light bilaterally. ENT: No hemotympanum. No epistaxis. No septal hematoma. Midface stable. No blood in the oropharynx. No anterior neck injury/crepitus/tenderness. C-SPINE: No step-offs or deformities, nontender. C-collar not in place. CHEST: Right-sided lateral tenderness with some very, very minimal scratches. No abrasions or ecchymosis. Equal chest movement. ABDOMEN: Soft, nontender, nondistended. PELVIS: Stable to palpation, nontender. No abrasions or ecchymosis. RECTAL: Deferred. GENITOURINARY: Deferred. EXTREMITIES: Gross motor and sensation. No abrasions or ecchymosis. BACK/SPINE: No step-offs or deformities or tenderness to palpation of the thoracic or lumbar spine. No abrasions or ecchymosis. NEUROLOGIC: 5/5 strength in the bilateral bank analyst, plantar flexion, and dorsiflexion. Gross normal sensation x4 extremities. LABORATORY FINDINGS: White count 10.1, hemoglobin 14.1, hematocrit 41.6, platelets 180. INR 1.0. Sodium 144, potassium 3.1, chloride 113, carbon dioxide 21, BUN 12, creatinine 0.69, glucose 103, phosphorus 3.3, magnesium 1.7, total bilirubin 0.3, AST 26, ALT 21. Plasma alcohol level 19. DIAGNOSTIC FINDINGS: Chest x-ray demonstrates subcutaneous emphysema along the right chest in the supraclavicular location. No obvious pneumothorax is delineated on the exam, but given subcutaneous emphysema, CT thorax would be helpful for further evaluation. Bibasilar atelectasis. No pleural effusion is seen. CT of the chest, abdomen, and pelvis demonstrates right-sided rib fractures with small right pneumothorax and subcutaneous emphysema. No acute findings are seen in the abdomen or pelvis. No evidence of acute osseous abnormalities of the thoracic or lumbar spine. Spondylolysis of L5. ASSESSMENT: 1. Status post mechanical fall from 6 feet. 2. Small right-sided pneumothorax. 3. Right-sided ribs, 6 through 9 fracture. 4. Hypokalemia and hypomagnesemia. 5. History of chronic alcohol and tobacco abuse. 6. Acute traumatic pain secondary to multiple right-sided rib fractures. PLAN: The patient will be admitted to the surgical floor. She will receive pain control with scheduled Ofirmev, p.r.n. Flexeril, scheduled gabapentin, scheduled Toradol, scheduled Lidoderm patches, p.r.n. morphine for breakthrough pain, and scheduled tramadol. She will also receive nebulized treatments q.8 hours as well as additional for p.r.n. She will be given a regular diet, but will also receive normal saline throughout the night. We will start the patient on thiamine, folic acid, and multivitamins. The patient to receive Serax q.8 hours to prevent alcohol withdrawal while she is inpatient. She will receive a repeat chest x-ray tomorrow morning for further evaluation of the right pneumothorax. We will consider right chest tube if the patient decompensates and if there is an increase in the right-sided pneumothorax. We will continue to keep the patient on oxygen at minimum of 2 L in order to help resolve the pneumothorax. Goal oxygen saturation is greater than 88%. PT, OT to see the patient tomorrow to start mobilizing her. It is likely that she would be able to be discharged home after good pain control and a stable chest x-ray. The patient was discussed with Dr. Montgomery, who also reviewed the imaging and agrees with the plan. We will also replace magnesium and phosphorus today. Job ID: [id number]
[2019-04-21] MEDS: Acetaminophen 500 MG TAB PO SCH ×2 (11:51→18:14)
--- NOTE | 2019-04-21 18:23 | PRG ---
DATE OF SERVICE: 04/21/2019 SUBJECTIVE: The patient was seen this morning sitting up in bed. Reported she slept well overnight. She has right-sided chest wall pain with deep breathing and coughing, but reports it is much improved with the current pain regimen from yesterday. She had ordered breakfast, but had not had p.o. intake. She is to work with Physical and Occupational Therapy today. She denies nausea, vomiting or diarrhea. OBJECTIVE: VITAL SIGNS: Temperature 97.8, pulse 74, respirations 12, oxygen saturation 94% on 2 L nasal cannula, and blood pressure 137/81. GENERAL: Well-appearing middle-aged female with minimal distress, sitting up in bed. PULMONARY: Equal chest rise and fall. Clear breath sounds bilaterally. No signs of acute respiratory distress. CARDIAC: Regular rate and rhythm. No murmurs, gallops or rubs. GI: Abdomen is soft, nontender, and nondistended. EXTREMITIES: 2+ pulses in all extremities. No significant swelling noted. Gross motor and sensation are intact. NEUROLOGIC: GCS is 15. Pupils equal, round, reactive to light bilaterally. LABORATORY FINDINGS: White count 7.7, hemoglobin 12.6, hematocrit 37.6, and platelets 165. Sodium 136, potassium 4.5, chloride 107, carbon dioxide 23, BUN 14, creatinine 0.7, glucose 94, phos 3.3, and magnesium 2.6. DIAGNOSTIC FINDINGS: Chest x-ray completed this morning demonstrates stable chest tiny residual right-sided pneumothorax and stable right-sided subcu emphysema. Stable linear interstitial increased markings bilaterally. Continue short-term followup for complete clearing. ASSESSMENT: 1. Status post fall from 6 feet. 2. Small right pneumothorax, improving. 3. Right ribs 6 through 9 fracture, stable. 4. History of tobacco and alcohol use. PLAN: The patient will continue with current pain regimen and diet. Continue sitting up and ambulating, working with Physical Therapy today. The patient remains on 2 L nasal cannula to help further resolve pneumothorax. We will attempt to wean nasal cannula starting tomorrow. She will receive a chest x-ray tomorrow morning, and if pain is well controlled, we will discharge her at that time. The patient was seen and examined by Dr. Danielson and myself this morning during rounds. Job ID: [id number]
[2019-04-21] MEDS: Cyclobenzaprine 10 MG TAB PO PRN (19:26)
[2019-04-21] MEDS: Lidocaine 5% Patch TD SCH (21:28)
[2019-04-22] MEDS: Ketorolac Tromethamine 30 MG/ML VIAL IVP SCH ×2 (00:34→05:25)
[2019-04-22] MEDS: traMADol HCl 50 MG TAB PO SCH ×3 (00:35→11:39)
[2019-04-22] MEDS: Acetaminophen 500 MG TAB PO SCH ×3 (00:36→11:38)
[2019-04-22] MEDS: Oxazepam 10 MG CAP PO SCH (05:43)
--- NOTE | 2019-04-22 08:38 | RAD ---
SINGLE VIEW CHEST: Date: 04/22/19 COMPARISON: 04/21/19. HISTORY: Right pneumothorax. FINDINGS: Single view of the chest shows a normal sized cardiomediastinal silhouette. Atelectasis is seen in kiera th lung bases. No pneumothorax is visualized. There is no evidence of consolidation, mass, or pleural effusion. Air is seen along the right chest wall. IMPRESSION: Bibasilar atelectasis. POS: JANAK
[2019-04-22] MEDS: Cyclobenzaprine 10 MG TAB PO PRN ×2 (08:42→14:33)
[2019-04-22] MEDS: Polyethylene Glycol 3350 17 GM Packet PO SCH (08:42)
[2019-04-22] MEDS: Gabapentin 300 MG CAP PO SCH ×2 (08:42→14:33)
[2019-04-22] MEDS: Senokot S 8.6-50 MG TAB PO SCH (08:43)
[2019-04-22] MEDS: Folic Acid 1 MG TAB PO SCH (08:43)
[2019-04-22] MEDS: Multivitamin W/ Minerals 1 TAB PO SCH (08:43)
[2019-04-22] MEDS ORDERED: Ibuprofen 800 MG TAB PO PRN (08:54)
[2019-04-22] MEDS ORDERED: Thiamine 100 MG TAB PO SCH (09:00)
[2019-04-22] MEDS: Lidocaine Patch Removal 1 EACH TOP SCH (10:29)
[2019-04-22 11:55] VITALS: BP 131/79; TEMP 97.4
--- NOTE | 2019-04-23 03:30 | DIS ---
DATE OF ADMISSION: 04/20/2019 DATE OF DISCHARGE: 04/22/2019 ADMISSION DIAGNOSES: 1. Status post fall from ladder, approximately 6 feet. 2. Small right-sided pneumothorax. 3. Right-sided rib fractures, 6 through 9. 4. Hypokalemia and hypomagnesemia. 5. History of chronic alcohol and tobacco abuse. 6. Acute traumatic pain secondary to multiple right-sided rib fractures. CONSULTATIONS: None. PROCEDURES: None. SUMMARY: The patient is a 63-year-old woman, who was reportedly on a ladder cleaning gutters, when she fell landing on her right side. She was brought to the emergency department, where she underwent evaluation and examination and was noted to have the above injuries. She would be admitted to the hospital. The following day, her small right pneumothorax was still visible on x-ray and her pain was not adequately controlled. So, she spent another night in the hospital. On day of discharge, her pneumothorax was not visible on her radiographs. Her oxygen saturation was approximately 90% to 92% on room air. Her pain was controlled and she was tolerating a diet. She was discharged home with strict return precautions, and she will follow up in the trauma clinic in 10 to 14 days with a repeat chest x-ray at that time or sooner as needed. The patient was also advised to follow up with her primary care provider next week. Job ID: [id number]
== END 2019-04-22 14:44 | disposition home or self-care (01) | DRG 200 ==
LOC: ERS 18:41 → SURG A 21:29
PROVIDERS: ADMIT Specialist; ATTEND Specialist
DX: S27.0XXA Traumatic pneumothorax, initial encounter (principal); S22.41XA Multiple fractures of ribs, right side, initial encounter for closed fracture; W11.XXXA Fall on and from ladder, initial encounter; F17.210 Nicotine dependence, cigarettes, uncomplicated; E87.6 Hypokalemia; E83.42 Hypomagnesemia; Z85.41 Personal history of malignant neoplasm of cervix uteri; Z90.710 Acquired absence of both cervix and uterus
CPT/HCPCS: 36415; 71045; 71260; 74177; 80048; 80053; 80307; 83735; 84100; 85025; 85610; 85730; 93005; 94640; 94760; 96374; 96375; J0131; J1885; J2270; J3010; J3475; J3480; J7050; J7620

== ENCOUNTER 2019-04-26 18:29 | Emergency (ER) | payer OTHER ==
--- NOTE | 2019-04-26 18:53 | RAD ---
EXAM: Single view of the chest HISTORY: Rib pain exacerbation. Right sixth and seventh broken ribs with pneumothorax COMPARISON: CT chest 04/20/2019 FINDINGS: Single view of the chest shows a normal sized cardiomediastinal silhouette. Atelectasis is seen in the left lung base. There is no evidence of consolidation, mass, or pleural effusion. No obvious displaced rib fractures are appreciated on this exam. No pneumothorax is seen. IMPRESSION: No evidence of acute cardiopulmonary disease
[2019-04-26] MEDS ORDERED: Ketorolac Tromethamine 60 MG/2 ML VIAL ONE (18:55)
== END 2019-04-26 19:28 | disposition home or self-care (01) ==
LOC: ERS 18:29
DX: R07.81 Pleurodynia (principal); F41.9 Anxiety disorder, unspecified; F32.9 Major depressive disorder, single episode, unspecified; F17.210 Nicotine dependence, cigarettes, uncomplicated
CPT/HCPCS: 71045; 96372; J1885

== ENCOUNTER 2019-05-03 13:52 | Outpatient (CLI) | payer OTHER ==
--- NOTE | 2019-05-03 14:18 | RAD ---
EXAM: Chest PA and lateral: HISTORY: Multiple rib fractures. COMPARISON: 04/26/2019 FINDINGS: Heart: Normal cardiac silhouette Aorta: Slightly elongated. Pulmonary vessels: Normal Costophrenic angles: Costophrenic angles are clear. Lungs: No consolidation or masses. Pneumothorax: No pneumothorax Osseous structures: No osseous abnormalities IMPRESSION: Improved aeration of the lung bases. Previously noted bibasilar opacities have resolved. No pneumotho rax.
== END 2019-05-03 13:53 | disposition home or self-care (01) ==
LOC: RAD 13:52
PROVIDERS: ATTEND Physician Assistant
DX: S22.41XD Multiple fractures of ribs, right side, subsequent encounter for fracture with routine healing (principal); J93.9 Pneumothorax, unspecified
CPT/HCPCS: 71046

== ENCOUNTER 2020-03-05 12:10 | Emergency (ER) | payer OTHER | END 2020-03-05 12:48 | disposition home or self-care (01) | LOC: ERS 12:10 | DX: L02.01 Cutaneous abscess of face (principal); F41.9 Anxiety disorder, unspecified; F32.9 Major depressive disorder, single episode, unspecified; F17.210 Nicotine dependence, cigarettes, uncomplicated | CPT/HCPCS: 99282 ==

== ENCOUNTER 2021-03-09 13:20 | Emergency (ER) | payer OTHER | END 2021-03-09 15:39 | disposition home or self-care (01) | LOC: ERS 13:20 | DX: L21.9 Seborrheic dermatitis, unspecified (principal); F17.210 Nicotine dependence, cigarettes, uncomplicated | CPT/HCPCS: 99283 ==